=== PATIENT | male | born 1950 | race Caucasian/White ===

== ENCOUNTER 2021-03-29 22:54 | Inpatient (IN) | payer MEDICARE ==
[~2021-03-29] VITALS: Ht 177.8 cm; Wt 97.5 kg
[~2021-03-29 22:54] MED LIST: CEFUROXIME500 MG PO; CYCLOBENZAPRINE5 MG PO
[2021-03-29 23:21] LABS: HEMOGLOBIN 12.2 gm/dl (14.0-17.5); RED BLOOD COUNT 4.2 M/UL (4.20-5.50); WHITE BLOOD COUNT 23.2 K/UL (4.5-11.0)
[2021-03-30 00:01] LABS: BUN/CREATININE RATIO 12 (0-10)
[2021-03-30 07:07] LABS: HEMOGLOBIN 12.7 gm/dl (14.0-17.5); RED BLOOD COUNT 4.47 M/UL (4.20-5.50)
[2021-03-30 07:19] LABS: WHITE BLOOD COUNT 13.2 K/UL (4.5-11.0)
[2021-03-30 12:47] LABS: ACINETOBACTER BAUMANNII Not Detected (Negative); CANDIDA ALBICANS Not Detected (Negative); CANDIDA KRUSEI Not Detected (Negative); CANDIDA TROPICALIS Not Detected (Negative); ENTEROCOCCUS Not Detected (Negative); HAEMOPHILUS INFLUENZAE Not Detected (Negative); KLEBSIELLA OXYTOCA Not Detected (Negative); KLEBSIELLA PNEUMONIAE Not Detected (Negative); KPC-CARBAPENEM-RESISTANCE GENE Not Detected (Negative); PROTEUS Not Detected (Negative); PSEUDOMONAS AERUGINOSA Not Detected (Negative); SERRATIA MARCESANS Not Detected (Negative); STAPHYLOCOCCUS Not Detected (Negative); STAPHYLOCOCCUS AUREUS Not Detected (Negative); STREP AGALACTIAE (GROUP B) Not Detected (Negative); STREP PYOGENES (GROUP A) Not Detected (Negative); STREPTOCOCCUS Not Detected (Negative); mecA (METHICILLIN RESIST GENE Not Detected (Negative); vanA/B (VANCOMYCIN RESIST GENE Not Detected (Negative)
[2021-03-30 13:53] LABS: ESCHERICHIA COLI DETECTED (Negative)
[2021-03-31 04:24] LABS: HEMOGLOBIN 11.5 gm/dl (14.0-17.5); RED BLOOD COUNT 4.04 M/UL (4.20-5.50)
[2021-03-31 04:31] LABS: WHITE BLOOD COUNT 23.3 K/UL (4.5-11.0)
== END 2021-04-01 09:20 | disposition short-term general hospital (02) | DRG 871 ==
LOC: ER1 22:54 → CDU 03-30 02:54
PROVIDERS: Emergency Medicine; Internal Medicine Infectious Disease; ADMIT Internal Medicine
PROC: 3E033XZ Introduction of Vasopressor into Peripheral Vein, Percutaneous Approach (ICD-10-PCS; principal; 2021-03-30)
PROC: 02HV33Z Insertion of Infusion Device into Superior Vena Cava, Percutaneous Approach (ICD-10-PCS; 2021-03-30)
PROC: B548ZZA Ultrasonography of Superior Vena Cava, Guidance (ICD-10-PCS; 2021-03-30)
DX: A41.89 Other specified sepsis (principal); R65.21 Severe sepsis with septic shock; G93.41 Metabolic encephalopathy; Z20.822 Contact with and (suspected) exposure to COVID-19; N13.6 Pyonephrosis; E87.1 Hypo-osmolality and hyponatremia; E87.2 Acidosis; N17.9 Acute kidney failure, unspecified; I48.0 Paroxysmal atrial fibrillation; E86.1 Hypovolemia; Z96.41 Presence of insulin pump (external) (internal); K82.8 Other specified diseases of gallbladder; E11.9 Type 2 diabetes mellitus without complications; Z79.4 Long term (current) use of insulin; Z79.01 Long term (current) use of anticoagulants; Z90.49 Acquired absence of other specified parts of digestive tract; Z88.8 Allergy status to other drugs, medicaments and biological substances
CPT/HCPCS: 36600; 70450; 71045; 72100; 76705; 80048; 80053; 80307; 81001; 82140; 82550; 82553; 82803; 82962; 83605; 83690; 83735; 83874; 83880; 84439; 84443; 84484; 85025; 87040; 87077; 87086; 87150; 87186; 93005; 94664; 94760; 96372; 96374; 99283; 99285; J0692; J0696; J1170; J1650; J1720; J2185; J2270; J3010; J3370; J3475; J7030; J7070; J7120; U0002